=== PATIENT | female | born 1950 | race Two or more races ===

== ENCOUNTER 2025-07-04 19:31 | Emergency (ER) | payer OTHER ==
[~2025-07-04] VITALS: Ht 167.6 cm; Wt 72.6 kg
[2025-07-04] MEDS ORDERED: KAPSPARGO SPRIN50 MG PO (19:38)
[2025-07-04] MEDS ORDERED: MOUNJARO7.5 MG/0.5 SQ (19:39)
[2025-07-04] MEDS ORDERED: KETOROLAC TROMETHAMINE 60 MG VIAL IM ONE (21:30)
[2025-07-04] MEDS ORDERED: ORPHENADRINE CITRATE 30 MG/ML AMPUL IM ONE (21:30)
[2025-07-04] MEDS ORDERED: ACETAMINOPHEN 500 MG GEL..CAP PO ONE (21:30)
[2025-07-05] MEDS ORDERED: 0.9 % SODIUM CHLORIDE 1,000 ML IV SCH (02:00)
[2025-07-05 04:04] LABS: BASO % 0.3 % (0.1-1.2); EOS # 0.14 (0.04-0.54); EOS % 1.5 % (0.7-7.0); LYMPH # 2.03 (1.18-3.74); LYMPH % 21.9 % (19.3-53.1); MEAN PLATELET VOLUME 10.60 fl (9.4-12.4); MONO # 0.67 (0.24-0.82); MONO % 7.2 % (4.7-12.5); NEUT # 6.40 (1.56-6.13); NEUT % 68.9 % (34.0-71.1); RED CELL DISTRIBUTION WIDTH 13.0 % (11.6-14.4)
[2025-07-05 04:12] LABS: URINE APPEARANCE Clear; URINE BILIRRUBIN Negative (NEGATIVE); URINE BLOOD Negative; URINE COLOR Yellow; URINE KETONE 15 (NEGATIVE); URINE LEUKOCYTE Negative; URINE NITRATE Negative; URINE PROTEIN Negative (NEGATIVE); URINE UROBILINOGEN 0.2 E.U./dl
[2025-07-05 04:16] LABS: URINE BACTERIA 201.3 uL (0.0-1933); URINE EPITHELIAL CELLS 7.0 uL (0.0-38.8); URINE WBC 7.9 uL (0.0-23.2)
[2025-07-05 04:20] LABS: URINE CAST 0.00 uL (0.0-1.40); URINE GLUCOSE >=1000 MG/DL (NEGATIVE); URINE RBC 0.4 uL (0.0-20.8)
[2025-07-05 04:25] LABS: INR 0.98
[2025-07-05 04:30] LABS: ALT/SGPT 31.0 U/L (12-78); AST/SGOT 12.0 U/L (15-37); BILIRUBIN TOTAL 0.65 mg/dL (0.3-1.2); BUN CREA RATIO 19.0 (7.0-25.0); CREATININE SERUM 0.7 mg/dL (0.55-1.02); GFR 81.8; GLOBULINA 4.5 G/DL (2.4-3.5); GLUCOSE FASTING 170.0 mg/dL (65-100); OSMOLALITY SERUM 285.0 MOSM/KG (275-295)
== END 2025-07-05 11:59 | disposition home or self-care (01) ==
LOC: ER 19:31
PROVIDERS: General Practice
DX: S82.251A Displaced comminuted fracture of shaft of right tibia, initial encounter for closed fracture (principal); S82.391A Other fracture of lower end of right tibia, initial encounter for closed fracture; W18.39XA Other fall on same level, initial encounter; Y93.89 Activity, other specified; Y92.89 Other specified places as the place of occurrence of the external cause; Y99.9 Unspecified external cause status; I10 Essential (primary) hypertension; E11.9 Type 2 diabetes mellitus without complications; Z79.85 Long-term (current) use of injectable non-insulin antidiabetic drugs